=== PATIENT | male | born 1955 | race Asian ===

== ENCOUNTER 2022-09-25 19:51 | Emergency (ER) | payer OTHER ==
[~2022-09-25] VITALS: Ht 177.8 cm; Wt 90.0 kg
[2022-09-25 20:00] VITALS: BP 160/71
[2022-09-26 00:36] LABS: BASOPHILS % 1.5 % (0.0-2.0); EOSINOPHILS % 1.9 % (0.0-5.0); HEMATOCRIT. 32.6 % (42.0-52.0); HEMOGLOBIN. 10.5 g/dL (14.0-18.0); LYMPHOCYTES % 42.4 % (20.0-50.0); MEAN CORPUSCULAR HEMOGLOBIN 22.8 pg (28.0-32.0); MEAN CORPUSCULAR VOLUME 70.6 fL (80.0-94.0); MEAN PLATELET VOLUME 7.8 fl (7.4-10.4); MONOCYTES % 12.3 % (2.0-8.0); NEUTROPHILS % 41.9 % (40.0-76.0); PLATELET 226 x1000/uL (130-400); RED BLOOD CELL COUNT 4.61 mill/uL (4.7-6.1); RED CELL DISTRIBUTION WIDTH 14.7 % (11.6-14.6)
[2022-09-26 00:43] LABS: CHLORIDE 104 mEq/L (98-107)
[2022-09-26] MEDS ORDERED: NA PHOS,M-B/NA PHOS,DI-BA ENEMA 118ML PR ONE (01:00)
[2022-09-26 02:07] LABS: CLARITY URINE CLEAR (CLEAR); COLOR URINE YELLOW (YELLOW); KETONES URINE NEGATIVE (NEGATIVE); LEUKOCYTE ESTERASE URINE NEGATIVE (NEGATIVE); NITRITE URINE NEGATIVE (NEGATIVE); OCCULT BLOOD URINE NEGATIVE (NEGATIVE); PH URINE 5.5 (4.5-8.0); PROTEIN URINE NEGATIVE (NEGATIVE); SPECIFIC GRAVITY URINE 1.013 (1.005-1.030); UROBILINOGEN URINE 0.2 E.U./dL (0.2-1.0)
[2022-09-26] MEDS ORDERED: POLY17PO3 MT (02:54)
== END 2022-09-26 02:50 | disposition home or self-care (01) ==
LOC: ER 19:51
DX: S60.222A Contusion of left hand, initial encounter (principal); K59.00 Constipation, unspecified; W18.39XA Other fall on same level, initial encounter; Y93.89 Activity, other specified; Y92.89 Other specified places as the place of occurrence of the external cause; Y99.8 Other external cause status
CPT/HCPCS: 36415; 73120; 74176; 80053; 81003; 85025; 99285

== ENCOUNTER 2023-03-30 04:37 | Emergency (ER) | payer OTHER ==
[~2023-03-30] VITALS: Ht 180.3 cm; Wt 82.0 kg
[~2023-03-30 04:37] MED LIST: POLY17PO3 MT
[2023-03-30 04:38] VITALS: BP 124/71; PULSE 53; RESP 16; TEMP 97.9; O2SAT 98
[2023-03-30] MEDS ORDERED: ACETAMINOPHEN 500MG TABLET PO ONE (06:15)
[2023-03-30] MEDS ORDERED: TOPUD PO (06:48)
== END 2023-03-30 07:01 | disposition home or self-care (01) ==
LOC: ER 04:37
DX: M54.2 Cervicalgia (principal); Z88.5 Allergy status to narcotic agent
CPT/HCPCS: 99284